=== PATIENT | female | born 1965 | race Caucasian/White ===

== ENCOUNTER → 2017-01-13 | Day surgery (SDC) | payer OTHER | END | disposition home or self-care (01) | LOC: SDC 10:58 | DX: C67.4 Malignant neoplasm of posterior wall of bladder (principal); N30.10 Interstitial cystitis (chronic) without hematuria; E66.9 Obesity, unspecified; J44.9 Chronic obstructive pulmonary disease, unspecified; J45.909 Unspecified asthma, uncomplicated; M19.90 Unspecified osteoarthritis, unspecified site; I10 Essential (primary) hypertension; G43.909 Migraine, unspecified, not intractable, without status migrainosus; G25.81 Restless legs syndrome; Z88.5 Allergy status to narcotic agent; Z90.710 Acquired absence of both cervix and uterus; Z79.899 Other long term (current) drug therapy; Z88.8 Allergy status to other drugs, medicaments and biological substances; Z87.01 Personal history of pneumonia (recurrent); G47.33 Obstructive sleep apnea (adult) (pediatric); Z90.49 Acquired absence of other specified parts of digestive tract; Z87.442 Personal history of urinary calculi | CPT/HCPCS: C1758; J1885; J2704; Q9967 ==

== ENCOUNTER → 2017-01-30 | Day surgery (SDC) | payer OTHER | END | disposition home or self-care (01) | LOC: SDC 10:47 | DX: C67.9 Malignant neoplasm of bladder, unspecified (principal); E11.9 Type 2 diabetes mellitus without complications | CPT/HCPCS: J9031 ==

== ENCOUNTER → 2017-02-06 | Day surgery (SDC) | payer OTHER | END | disposition home or self-care (01) | LOC: SDC 12:30 | DX: C67.9 Malignant neoplasm of bladder, unspecified (principal) | CPT/HCPCS: J9031 ==

== ENCOUNTER → 2017-02-13 | Day surgery (SDC) | payer OTHER | END | disposition home or self-care (01) | LOC: SDC 12:30 | DX: C67.9 Malignant neoplasm of bladder, unspecified (principal) | CPT/HCPCS: J9031 ==

== ENCOUNTER → 2017-02-20 | Day surgery (SDC) | payer OTHER | END | disposition home or self-care (01) | LOC: SDC 12:30 | DX: C67.9 Malignant neoplasm of bladder, unspecified (principal) | CPT/HCPCS: J9031 ==

== ENCOUNTER → 2017-02-24 | Day surgery (SDC) | payer OTHER | END | disposition home or self-care (01) | LOC: SDC 12:30 | DX: C67.9 Malignant neoplasm of bladder, unspecified (principal) | CPT/HCPCS: J9031 ==

== ENCOUNTER → 2017-03-06 | Day surgery (SDC) | payer OTHER | END | disposition home or self-care (01) | LOC: SDC 12:30 | DX: C67.9 Malignant neoplasm of bladder, unspecified (principal) | CPT/HCPCS: J9031 ==